=== PATIENT | female | born 1980 | race Caucasian/White ===

== ENCOUNTER 2016-12-09 13:19 | Emergency (ER) | payer MEDICAID ==
[~2016-12-09] VITALS: Ht 154.9 cm; Wt 100.0 kg
[~2016-12-09 13:19] MED LIST: ALPR0.25 PO; CORT1SOL LEFT EAR; CYAN1000P IM; CYMB60CA PO; DOXE75CA2 PO; ERGO1CAP10 PO; HYDR-3534 PO; MAGICADU2 SWISH-SWAL; METH750T PO; NAPR500 PO; NYST1000 SWISH-SWAL; PENI500T PO; PREG300 PO; RIZA5TAB PO; SUMA85TA PO; TOPI1TAB97 PO; ZANT150T2 PO; ZETI10TA5 PO; ZOFR4TAB3 SL
[2016-12-09 13:21] VITALS: BP 143/89; PULSE 96; RESP 17; TEMP 98.1; O2SAT 98
[2016-12-09] MEDS ORDERED: CYMB30CA PO (13:47)
[2016-12-09] MEDS ORDERED: DOXE100C4 PO (13:47)
[2016-12-09] MEDS ORDERED: PERI0.126 SWISH-SPIT (14:14)
[2016-12-09] MEDS ORDERED: PENI500T PO (14:14)
[2016-12-09] MEDS ORDERED: IBUP800T23 PO (14:14)
--- NOTE | 2016-12-09 14:15 | PD ---
HPI Chief Complaint: Oral / Dental Pain or Problem Time Seen by Provider: 14:10 Travel History International Travel<30 days: No Contact w/Intl Traveler<30days: No Traveled to known affect area: No History of Present Illness HPI 36-year-old female presents to the emergency department for evaluation of dental pain and possible dental abscess that started a few days ago. Patient has history of chronic dental problems. She states she has an appointment with an oral surgeon coming to have her teeth removed. She tried to get into her primary care physician for this issue, but was unable to get an appointment until Tuesday. Patient denies any fevers or chills. Patient states that the pain radiates to her left ear. She states that she typically gets penicillin which will help her symptoms. Patient is also requesting a prescription for ibuprofen. Patient denies any other complaints at this time. PFSH Past Medical History Asthma: Yes ( A CHILD) Anxiety: Yes Depression: Yes Heart Rhythm Problems: Yes Diminished Hearing: No Diverticulitis: Yes Fibromyalgia: Yes Gastrointestinal Disorders: Yes (BLEEDING ULCERS; MULTIPLE ADHESIONS; IBS) GERD: Yes Genitourinary: Yes (KIDNEY STONES) Insomnia: Yes Musculoskeletal: Yes (HERNIATED DISCS) Respiratory: Yes (ASTHMA) Migraines: Yes Pancreatitis: Yes ?: Not LMP: 11/17/16 : 3 Para: 3 Tubal Ligation: Yes (X 2) Past Surgical History Abdominal Surgery: Yes (ABDOMINOPLASTY WITH LIPOSUCTION) Section: Yes (X 3) Cholecystectomy: Yes Social History Alcohol Use: No Tobacco Use: No Substance Use: No Allergies-Medications (Allergen,Severity, Reaction): Coded Allergies: Penicillin (Verified Allergy, Intermediate, YEAST INFECT, 12/09/16) Reported Meds & Prescriptions Reported Meds & Active Scripts Active Cortisporin HC Otic Drops (Mehbiwme-Gfggbuvnl-NN Otic Drops) 3.5-10,000-1 Mg- Units-% Soln 4 Drop LEFT EAR QID Reported Cymbalta DR (Duloxetine HCl) 30 Mg Capdr 40 Mg PO DAILY Doxepin (Doxepin HCl) 100 Mg Cap 100 Mg PO HS Rizatriptan (Rizatriptan Benzoate) 5 Mg Tab 5 Mg PO ONCE May repeat in 2hr intervals, not to exceed 30mg in 24hrs Zofran Odt (Ondansetron Odt) 4 Mg Tab 4 Mg SL Q6HR PRN Topiramate 25 Mg Tab 50 Mg PO BID Zetia (Ezetimibe) 10 Mg Tab 10 Mg PO DAILY Zantac (Ranitidine HCl) 150 Mg Tab 150 Mg PO BID Cyanocobalamin Inj (Cyanocobalamin) 1,000 Mcg/Ml Inj 1,000 Mcg IM Q30D Vitamin D (Ergocalciferol) 50,000 Unit Cap 50,000 Units PO Q7D MONDAYS Lyrica (Pregabalin) 300 Mg Cap 300 Mg PO BID Methocarbamol 750 Mg Tab 750 Mg PO Q12HR Lortab (Hydrocodone-Acetaminophen) 7.5-325 Mg Tab 1 Tab PO Q12HR PRN Review of Systems Except as stated in HPI: all other systems reviewed are Neg Physical Exam Narrative GENERAL: Well-developed well-nourished female patient, ambulatory. Afebrile. SKIN: Warm and dry. HEAD: Normocephalic. Atraumatic. ENT: Mucosa pink and moist. No erythema or exudates. No uvular edema. No uvular , palatal, or tonsillar deviation. Airway patent. Nasal turbinates appear normal without nasal blood, purulent drainage or septal hematoma. Bilateral tympanic membranes are clear without erythema or perforation. He has poor dentalgia. She has tenderness above tooth #14 and below tooth #19. No facial swelling. EYES: No scleral icterus. No injection or drainage. NECK: Supple, trachea midline. No JVD or lymphadenopathy. CARDIOVASCULAR: Regular rate and rhythm without murmurs, gallops, or rubs. RESPIRATORY: Breath sounds equal bilaterally. No accessory muscle use. Lungs sounds are clear to auscultation. MUSCULOSKELETAL: No cyanosis, or edema. Data Data Last Documented VS Vital Signs Date Time Temp Pulse Resp B/P Pulse Ox O2 Delivery O2 Flow Rate FiO2 12/09/16 13:21 98.1 96 17 143/89 98 MDM Medical Decision Making Medical Screen Exam Complete: Yes Emergency Medical Condition: Yes Medical Record Reviewed: Yes Differential Diagnosis dental abscess versus dental caries versus gingivitis Narrative Course 36-year-old female presents to the emergency department for evaluation dental pain, possible dental abscess. Patient will be discharged with a prescription for pen VK, Peridex oral solution, ibuprofen for pain. She is agreeable to this plan. She is to keep her upcoming appointments for her primary care physician oral surgeon. She verbalizes agreement and understanding. The patient was discharged in stable condition with instructions, including return instructions and follow up instructions. Diagnosis Primary Impression: Toothache Referrals: Primary Care Physician Patient Instructions: General Instructions, Toothache (ED) Additional Instructions: Take antibiotic as directed until gone. Use Peridex oral solution as directed. Take ibuprofen as directed as needed with food for pain. Follow-up with your primary care physician and oral surgeon as scheduled. Return to the emergency department for any acute worsening of symptoms. Med/Other Pt SpecificInfo: Prescription(s) given Scripts Chlorhexidine Gluconate (Mouth) Liq (Peridex Liq)0.12% Soln15 Ml SWISH-SPIT BID #473 ML Ref 0 Prov:Rebekah Jameson 12/09/16 Ibuprofen 800 Mg [id number] Mg PO TID PRN (PAIN SCALE 1 TO 10) #21 TAB Ref 0 Prov:Rebekah Jameson 12/09/16 Penicillin V Potassium 500 Mg [id number] Mg PO Q6H 10 Days Ref 0 Prov:Rebekah Jameson 12/09/16 Disposition: 01 DISCHARGE HOME Condition: Stable Rebekah Jameson Dec 09, 2016 14:15
== END 2016-12-09 15:13 | disposition home or self-care (01) ==
LOC: NEPB 13:19
DX: K08.89 Other specified disorders of teeth and supporting structures (principal)
CPT/HCPCS: 99282

== ENCOUNTER 2018-01-13 17:39 | Emergency (ER) | payer MEDICAID ==
[~2018-01-13 17:39] MED LIST changes: -ALPR0.25 PO; +CYMB30CA PO; -CYMB60CA PO; +DOXE100C4 PO; -DOXE75CA2 PO; +EZET10 PO; +IBUP1TAB7 PO; -MAGICADU2 SWISH-SWAL; -NAPR500 PO; -NYST1000 SWISH-SWAL; +PERI0.126 SWISH-SPIT; -SUMA85TA PO; -TOPI1TAB97 PO; +TOPI25TA7 PO; -ZETI10TA5 PO
[2018-01-13 17:42] VITALS: BP 139/93; PULSE 98; RESP 18; TEMP 98.2; O2SAT 98
[2018-01-13 20:39] VITALS: BP 124/87; PULSE 82; RESP 18; O2SAT 99
[2018-01-13 21:14] LABS: AUTOMATED NEUTROPHIL # 11.6 TH/MM3 (1.8-7.7); BASOPHIL # 0.1 TH/MM3 (0-0.2); BASOPHIL % 0.8 % (0.0-2.0); EOSINOPHIL # 0.1 TH/MM3 (0-0.4); EOSINOPHIL % 0.7 % (0.0-4.0); HEMATOCRIT 41.7 % (35.0-46.0); HEMOGLOBIN 14.1 GM/DL (11.6-15.3); LYMPH % 26.9 % (9.0-44.0); LYMPHOCYTE # 4.6 TH/MM3 (1.0-4.8); MEAN CELL VOLUME 87.2 FL (80.0-100.0); MEAN CORPUSCULAR HEMOGLOBIN 29.6 PG (27.0-34.0); MEAN CORPUSCULAR HGB CONC 33.9 % (32.0-36.0); MEAN PLATELET VOLUME 8.1 FL (7.0-11.0); MONO % 3.6 % (0.0-8.0); MONOCYTE # 0.6 TH/MM3 (0-0.9); PLATELET COUNT 364 TH/MM3 (150-450); RED BLOOD COUNT 4.78 MIL/MM3 (4.00-5.30); RED CELL DISTRIBUTION WIDTH 15.4 % (11.6-17.2); WHITE BLOOD COUNT 17.1 TH/MM3 (4.0-11.0)
--- NOTE | 2018-01-13 21:32 | RADRPT ---
EXAM DATE/TIME: 01/13/2018 20:52 [facility] COMPARISON: No previous studies available for comparison. INDICATIONS : Chest pain, shortness of breath, cough. MEDICAL HISTORY : Asthma. SURGICAL HISTORY : Cholecystectomy. ENCOUNTER: Initial ACUITY: 2 days PAIN SCORE: 3/10 LOCATION: Bilateral chest FINDINGS: A single view of the chest demonstrates the lungs to be symmetrically aerated without evidence of mas s, infiltrate or effusion. The cardiomediastinal contours are unremarkable. Osseous structures are intact. CONCLUSION: No acute disease. Osvaldo Madrid MD on January 13, 2018 at 21:29 Board Certified Radiologist. This report was verified electronically.
[2018-01-13 21:40] LABS: ALBUMIN 3.7 GM/DL (3.4-5.0); ALKALINE PHOSPHATASE 169 U/L (45-117); ALT (GPT) 150 U/L (10-53); AST (GOT) 201 U/L (15-37); BICARBONATE 26.4 MEQ/L (21.0-32.0); BLOOD UREA NITROGEN 22 MG/DL (7-18); CHLORIDE 103 MEQ/L (98-107); CREATININE 0.97 MG/DL (0.50-1.00); GLOMERULAR FILTRATION RATE 64 ML/MIN (>89); GLUCOSE,RANDOM 93 MG/DL (74-106); SODIUM (NA) 135 MEQ/L (136-145); TOTAL BILIRUBIN ADULT 0.8 MG/DL (0.2-1.0); TOTAL PROTEIN 8.7 GM/DL (6.4-8.2); TROPONIN I LESS THAN 0.02 NG/ML (0.02-0.05)
[2018-01-13] MEDS ORDERED: KETOROLAC TROMETHAMINE 30 MG/ML (IVP) VIAL IV PUSH ONE (21:45)
[2018-01-13] MEDS ORDERED: PANTOPRAZOLE SODIUM 40 MG VIAL IV PUSH ONE (21:45)
[2018-01-13 23:13] LABS: BACTERIA, URINE RARE /hpf; BILIRUBIN, URINE NEG (NEG); BLOOD, URINE SMALL (NEG); GLUCOSE,URINE NEG (NEG); HYALINE CAST, URINE 2 /lpf (RARE); KETONE, URINE NEG (NEG); MUCUS URINE MOD /lpf (OCC); NITRITE,URINE NEG (NEG); SQUAMOUS EPITHELIAL CELL URINE 6 /hpf (0-5); URINE COLOR YELLOW (YELLW/STRAW); URINE LEUKOCYTE ESTERASE NEG (NEG)
[2018-01-14] MEDS ORDERED: LIDOCAINE VISCOUS 2% SOLN 15 ML UDC SWISH-SWAL ONE
[2018-01-14] MEDS ORDERED: ALUMINUM/MAGNESIUM/SIMETH 30 ML CUP PO ONE
[2018-01-14 00:30] VITALS: BP 127/77; PULSE 77; RESP 18; O2SAT 99
[2018-01-14] MEDS ORDERED: FAMO1TAB37 PO (00:59)
[2018-01-14] MEDS ORDERED: MAGICPED SWISH-SWAL (00:59)
--- NOTE | 2018-01-14 00:59 | PD ---
HPI Chief Complaint: Chest Pain Time Seen by Provider: 20:36 Travel History International Travel<30 days: No Contact w/Intl Traveler<30days: No Traveled to known affect area: No History of Present Illness HPI Patient is moderately obese 37 yr old female with has epigastric pain and unrelated lower back painand generalized aches flu like complaints , she has multiple varied complaints . Pt has history of fibromyalgia on lyrica and antidepressant, Pt had GB out PFSH Past Medical History Asthma: Yes ( A CHILD) Anxiety: Yes Depression: Yes Heart Rhythm Problems: Yes Diminished Hearing: No Diverticulitis: Yes Fibromyalgia: Yes Gastrointestinal Disorders: Yes (BLEEDING ULCERS; MULTIPLE ADHESIONS; IBS) GERD: Yes Genitourinary: Yes (KIDNEY STONES) Insomnia: Yes Musculoskeletal: Yes (HERNIATED DISCS) Respiratory: Yes (ASTHMA) Immunizations Current: Yes Migraines: Yes Pancreatitis: Yes ?: Not : 3 Para: 3 Tubal Ligation: Yes (X 2) Past Surgical History Abdominal Surgery: Yes (ABDOMINOPLASTY WITH LIPOSUCTION) Section: Yes (X 3) Cholecystectomy: Yes Social History Alcohol Use: No Tobacco Use: No Substance Use: No Allergies-Medications (Allergen,Severity, Reaction): Coded Allergies: No Known Allergies (Unverified Adverse Reaction, Unknown, 01/13/18) Reported Meds & Prescriptions Reported Meds & Active Scripts Active Pepcid (Famotidine) 20 Mg Tab 20 Mg PO BID Magic Mouthwash Pediatric/Adult Liq (Lidocaine/Diphenhydr/Alum/Mg/Simeth) 60 Ml Susp 5 Ml SWISH-SWAL ACHS Each 5mL contains: Diphenydramine 4.5mg, Viscous Lidocaine 2% 10mg, Maalox Advanced Regular Strength 2.7ml Peridex Liq (Chlorhexidine Gluconate (Mouth) Liq) 0.12% Soln 15 Ml SWISH-SPIT BID Ibuprofen 800 Mg Tab 800 Mg PO TID PRN Penicillin V Potassium 500 Mg Tab 500 Mg PO Q6H 10 Days Cortisporin HC Otic Drops (Tajfiacx-Pxlbxexpo-DS Otic Drops) 3.5-10,000-1 Mg- Units-% Soln 4 Drop LEFT EAR QID Reported Cymbalta DR (Duloxetine HCl) 30 Mg Capdr 40 Mg PO DAILY Doxepin (Doxepin HCl) 100 Mg Cap 100 Mg PO HS Rizatriptan (Rizatriptan Benzoate) 5 Mg Tab 5 Mg PO ONCE May repeat in 2hr intervals, not to exceed 30mg in 24hrs Zofran Odt (Ondansetron Odt) 4 Mg Tab 4 Mg SL Q6HR PRN Topiramate 25 Mg Tab 50 Mg PO BID Zetia (Ezetimibe) 10 Mg Tab 10 Mg PO DAILY Zantac (Ranitidine HCl) 150 Mg Tab 150 Mg PO BID Cyanocobalamin Inj (Cyanocobalamin) 1,000 Mcg/Ml Inj 1,000 Mcg IM Q30D Vitamin D (Ergocalciferol) 50,000 Unit Cap 50,000 Units PO Q7D MONDAYS Lyrica (Pregabalin) 300 Mg Cap 300 Mg PO BID Methocarbamol 750 Mg Tab 750 Mg PO Q12HR Lortab (Hydrocodone-Acetaminophen) 7.5-325 Mg Tab 1 Tab PO Q12HR PRN Physical Exam Narrative GENERAL: obese pt in mild distress appearance complaining of back pain and abdo pain and headache and general body aches SKIN: Warm and dry. HEAD: Atraumatic. Normocephalic. EYES: Pupils equal and round. No scleral icterus. No injection or drainage. ENT: No nasal bleeding or discharge. Mucous membranes pink and moist. NECK: Trachea midline. No JVD. CARDIOVASCULAR: Regular rate and rhythm. RESPIRATORY: No accessory muscle use. Clear to auscultation. Breath sounds equal bilaterally. GASTROINTESTINAL: Abdomen soft,obese epigastric tenderness, nondistended. Hepatic and splenic margins not palpable. MUSCULOSKELETAL: Extremities LOWER BACK lumbral paraspinal tenderness . NEUROLOGICAL: Awake and alert. No obvious cranial nerve deficits. Motor grossly within normal limits. Five out of 5 muscle strength in the arms and legs. Normal speech. PSYCHIATRIC: Appropriate mood and affect; insight and judgment normal. Data Data Last Documented VS Vital Signs Date Time Temp Pulse Resp B/P (MAP) Pulse Ox O2 Delivery O2 Flow Rate FiO2 01/14/18 01:08 01/14/18 00:30 77 18 99 Room Air 01/13/18 17:42 98.2 Orders Orders Electrocardiogram (01/13/18 ) Complete Blood Count With Diff (01/13/18 20:36) Comprehensive Metabolic Panel (01/13/18 20:36) Ckmb (Isoenzyme) Profile (01/13/18 20:36) Troponin I (01/13/18 20:36) Lipase (01/13/18 20:36) Chest, Single Ap (01/13/18 20:36) Pantoprazole Inj (Protonix Inj) (01/13/18 21:45) Ketorolac Inj (Toradol Inj) (01/13/18 21:45) CKMB (01/13/18 20:40) CKMB% (01/13/18 20:40) Urinalysis - C+S If Indicated (01/13/18 22:18) Al-Mag Hy-Si 40-40-4 Mg/Ml Liq (Mag-Al P (01/14/18 00:00) Lidocaine 2% Viscous (Xylocaine 2% Visco (01/14/18 00:00) Ed Discharge Order (01/14/18 00:47) Labs Laboratory Tests Test 01/13/18 20:40 01/13/18 22:20 White Blood Count 17.1 TH/MM3 Red Blood Count 4.78 MIL/MM3 Hemoglobin 14.1 GM/DL Hematocrit 41.7 % Mean Corpuscular Volume 87.2 FL Mean Corpuscular Hemoglobin 29.6 PG Mean Corpuscular Hemoglobin Concent 33.9 % Red Cell Distribution Width 15.4 % Platelet Count 364 TH/MM3 Mean Platelet Volume 8.1 FL Neutrophils (%) (Auto) 68.0 % Lymphocytes (%) (Auto) 26.9 % Monocytes (%) (Auto) 3.6 % Eosinophils (%) (Auto) 0.7 % Basophils (%) (Auto) 0.8 % Neutrophils # (Auto) 11.6 TH/MM3 Lymphocytes # (Auto) 4.6 TH/MM3 Monocytes # (Auto) 0.6 TH/MM3 Eosinophils # (Auto) 0.1 TH/MM3 Basophils # (Auto) 0.1 TH/MM3 CBC Comment DIFF FINAL Differential Comment Blood Urea Nitrogen 22 MG/DL Creatinine 0.97 MG/DL Random Glucose 93 MG/DL Total Protein 8.7 GM/DL Albumin 3.7 GM/DL Calcium Level 9.0 MG/DL Alkaline Phosphatase 169 U/L Aspartate Amino Transf (AST/SGOT) 201 U/L Alanine Aminotransferase (ALT/SGPT) 150 U/L Total Bilirubin 0.8 MG/DL Sodium Level 135 MEQ/L Potassium Level 5.5 MEQ/L Chloride Level 103 MEQ/L Carbon Dioxide Level 26.4 MEQ/L Anion Gap 6 MEQ/L Estimat Glomerular Filtration Rate 64 ML/MIN Total Creatine Kinase 127 U/L Creatine Kinase MB 1.6 NG/ML Troponin I LESS THAN 0.02 NG/ML Lipase 124 U/L Urine Color YELLOW Urine Turbidity CLEAR Urine pH 6.0 Urine Specific [place] 1.024 Urine Protein TRACE mg/dL Urine Glucose (UA) NEG mg/dL Urine Ketones NEG mg/dL Urine Occult Blood SMALL Urine Nitrite NEG Urine Bilirubin NEG Urine Urobilinogen LESS THAN 2.0 MG/DL Urine Leukocyte Esterase NEG Urine RBC 5 /hpf Urine WBC 1 /hpf Urine Squamous Epithelial Cells 6 /hpf Urine Bacteria RARE /hpf Urine Hyaline Casts 2 /lpf Urine Mucus MOD /lpf Microscopic Urinalysis Comment CULT NOT INDICATED MDM Medical Decision Making Medical Screen Exam Complete: Yes Emergency Medical Condition: Yes Differential Diagnosis DDx GERD vs chronic myalgias , vs GB disease vs pancreatitis vs other , Chronic abdo pain , acute gastritis other . Narrative Course Pt has relief from GI cocktail and protonix IV and toradol IV and I feel further emergent work up not indicated as her symptoms are relieved with antiacids. her epigastric pain relieved. My assumptions is that if it were pancreas disease then antiacids alone would not have relieved her pain Pt had her gallbladder out years ago , Pt is safe for Discharge with close outpt follow up Her LFTs are elevated AST dbl ALT possible etoh or medication related, pattern--> pt gallbladder removed over 5 years ago Diagnosis Primary Impression: GERD (gastroesophageal reflux disease) Qualified Codes: K21.9 - Gastro-esophageal reflux disease without esophagitis Patient Instructions: Gastritis (ED), General Instructions Scripts Famotidine (Pepcid) 20 Mg Tab 20 MG PO BID, #15 TAB 0 Refills Prov: Elian Johnson MD 01/14/18 Hcimzwuqepxxfyt-Bqwpufgic-Ans-Alum-Simeth Liq (Magic Mouthwash Pediatric/Adult Liq) 60 Ml Susp 5 ML SWISH-SWAL ACHS for Mouth sores, #60 ML 0 Refills Each 5mL contains: Diphenydramine 4.5mg, Viscous Lidocaine 2% 10mg, Maalox Advanced Regular Strength 2.7ml Prov: Elian Johnson MD 4/14/18 Disposition: 01 DISCHARGE HOME Condition: Good Alex,Elian MD Jan 14, 2018 00:59
--- NOTE | 2018-01-14 16:32 | EKG ---
Date Performed: 01/13/2018 Time Performed: 17:57:22 PTAGE: 37 years EKG: Sinus rhythm POSSIBLE LEFT ATRIAL ENLARGEMENT POSSIBLE RIGHT VENTRICULAR CONDUCTION DELAY BORDERLINE ECG NO PREVIOUS TRACING DOCTOR: Elva Maurice Interpretating Date/Time 01/14/2018 16:30:18
== END 2018-01-14 01:09 | disposition home or self-care (01) ==
LOC: NEPE 17:39
DX: K21.9 Gastro-esophageal reflux disease without esophagitis (principal); R94.31 Abnormal electrocardiogram [ECG] [EKG]; J45.909 Unspecified asthma, uncomplicated; F41.9 Anxiety disorder, unspecified; F32.9 Major depressive disorder, single episode, unspecified; M79.7 Fibromyalgia; K58.9 Irritable bowel syndrome, unspecified; E66.9 Obesity, unspecified
CPT/HCPCS: 71045; 80053; 81001; 82550; 82552; 83690; 84484; 85025; 93005; 96374; 96375; 99285; C9113; J1885

== ENCOUNTER 2018-01-21 14:57 | Emergency (ER) | payer MEDICAID ==
[~2018-01-21] VITALS: Ht 154.9 cm; Wt 104.0 kg
[~2018-01-21 14:57] MED LIST changes: +FAMO1TAB37 PO; +MAGICPED SWISH-SWAL
[2018-01-21] MEDS ORDERED: IOHEXOL 350 MG/ML 10 ML VIAL (for RAD DIAG) IVCONTRAST ONE (14:58)
[2018-01-21 15:03] VITALS: BP 129/85; PULSE 69; RESP 18; TEMP 97.9; O2SAT 94
[2018-01-21 16:19] VITALS: BP 116/72; PULSE 89; RESP 15; TEMP 98.2; O2SAT 100
[2018-01-21] MEDS ORDERED: SODIUM CHLORIDE 0.9% FLUSH 10 ML FLUSH IV FLUSH PRN (16:30)
[2018-01-21] MEDS ORDERED: SODIUM CHLOR 0.9% 1000 ML INJ 1,000 ML IV SCH (16:30)
[2018-01-21] MEDS ORDERED: MORPHINE SULFATE 4 MG/ML INJ IV PUSH ONE (16:30)
[2018-01-21] MEDS ORDERED: ONDANSETRON HCL 4 MG/2 ML VIAL IVP ONE (16:30)
--- NOTE | 2018-01-21 16:35 | PD ---
HPI Chief Complaint: Abdominal Pain Time Seen by Provider: 16:21 Travel History International Travel<30 days: No Contact w/Intl Traveler<30days: No Traveled to known affect area: No History of Present Illness HPI This is a 37-year-old female with history of peptic ulcer disease, IBS, GERD, fibromyalgia, cholecystectomy, diverticulosis, presents for evaluation of abdominal pain. Symptoms started 1.5 weeks ago. She describes pain as sharp, generalized, with associated bloating sensation. She reports associated 3-4 episodes of watery stool on a daily basis over the past 3 days as well as nausea. She is concerned that she may have diverticulitis. She was seen here for evaluation of this pain on January 13 and was felt to be secondary to her GERD. Her symptoms have persisted since then and she presents here for further evaluation. No other complaints at this time. PFSH Past Medical History Asthma: Yes ( A CHILD) Anxiety: Yes Depression: Yes Heart Rhythm Problems: Yes Diminished Hearing: No Diverticulitis: Yes Fibromyalgia: Yes Gastrointestinal Disorders: Yes (BLEEDING ULCERS; MULTIPLE ADHESIONS; IBS) GERD: Yes Genitourinary: Yes (KIDNEY STONES) Insomnia: Yes Musculoskeletal: Yes (HERNIATED DISCS) Respiratory: Yes (ASTHMA) Immunizations Current: Yes Migraines: Yes Pancreatitis: Yes Influenza Vaccination: No ?: Not LMP: 12/17/2017 : 3 Para: 3 Tubal Ligation: Yes (X 2) Past Surgical History Abdominal Surgery: Yes (ABDOMINOPLASTY WITH LIPOSUCTION) Section: Yes (X 3) Cholecystectomy: Yes Social History Alcohol Use: No Tobacco Use: No Substance Use: No Allergies-Medications (Allergen,Severity, Reaction): Coded Allergies: No Known Allergies (Unverified Adverse Reaction, Unknown, 01/21/18) Reported Meds & Prescriptions Reported Meds & Active Scripts Active Reported Zofran Odt (Ondansetron Odt) 4 Mg Tab 4 Mg SL Q6HR PRN Topiramate 25 Mg Tab 50 Mg PO BID Zantac (Ranitidine HCl) 150 Mg Tab 150 Mg PO BID Methocarbamol 750 Mg Tab 750 Mg PO Q12HR Review of Systems Except as stated in HPI: all other systems reviewed are Neg Physical Exam Narrative GENERAL: Well-developed well-nourished female no acute distress SKIN: Warm and dry. HEAD: Atraumatic. Normocephalic. EYES: Pupils equal and round. No scleral icterus. No injection or drainage. ENT: No nasal bleeding or discharge. Mucous membranes pink and moist. NECK: Trachea midline. No JVD. CARDIOVASCULAR: Regular rate and rhythm. No murmur appreciated. RESPIRATORY: No accessory muscle use. Clear to auscultation. Breath sounds equal bilaterally. GASTROINTESTINAL: Abdomen soft, mild tenderness to palpation the epigastrium and left lower quadrant without guarding. No CVA tenderness. MUSCULOSKELETAL: No obvious deformities. No clubbing. No cyanosis. No edema. NEUROLOGICAL: Awake and alert. No obvious cranial nerve deficits. Motor grossly within normal limits. Normal speech. PSYCHIATRIC: Appropriate mood and affect; insight and judgment normal. Data Data Last Documented VS Vital Signs Date Time Temp Pulse Resp B/P (MAP) Pulse Ox O2 Delivery O2 Flow Rate FiO2 01/21/18 18:53 98.2 70 14 122/69 (86) 99 Room Air Orders Orders Complete Blood Count With Diff (01/21/18 16:30) Comprehensive Metabolic Panel (01/21/18 16:30) Lipase (01/21/18 16:30) Urinalysis - C+S If Indicated (01/21/18 16:30) Ct Abd/Pel W Iv Contrast(Rout) (01/21/18 16:30) Iv Access Insert/Monitor (01/21/18 16:30) Ecg Monitoring (01/21/18 16:30) Oximetry (01/21/18 16:30) Morphine Inj (Morphine Inj) (01/21/18 16:30) Ondansetron Inj (Zofran Inj) (01/21/18 16:30) Sodium Chlor 0.9% 1000 Ml Inj (Ns 1000 M (01/21/18 16:30) Sodium Chloride 0.9% Flush (Ns Flush) (01/21/18 16:30) Ed Urine Pregnancytest Poc (01/21/18 16:30) Pantoprazole Inj (Protonix Inj) (01/21/18 16:45) Al-Mag Hy-Si 40-40-4 Mg/Ml Liq (Mag-Al P (01/21/18 16:45) Lidocaine 2% Viscous (Xylocaine 2% Visco (01/21/18 16:45) Iohexol 350 Inj (Omnipaque 350 Inj) (01/21/18 14:58) Ed Discharge Order (01/21/18 19:00) Labs Laboratory Tests Test 01/21/18 16:34 White Blood Count 14.6 TH/MM3 Red Blood Count 4.35 MIL/MM3 Hemoglobin 12.8 GM/DL Hematocrit 38.2 % Mean Corpuscular Volume 87.8 FL Mean Corpuscular Hemoglobin 29.3 PG Mean Corpuscular Hemoglobin Concent 33.4 % Red Cell Distribution Width 15.0 % Platelet Count 352 TH/MM3 Mean Platelet Volume 7.6 FL Neutrophils (%) (Auto) 67.5 % Lymphocytes (%) (Auto) 25.4 % Monocytes (%) (Auto) 3.9 % Eosinophils (%) (Auto) 2.3 % Basophils (%) (Auto) 0.9 % Neutrophils # (Auto) 9.9 TH/MM3 Lymphocytes # (Auto) 3.7 TH/MM3 Monocytes # (Auto) 0.6 TH/MM3 Eosinophils # (Auto) 0.3 TH/MM3 Basophils # (Auto) 0.1 TH/MM3 CBC Comment DIFF FINAL Differential Comment Urine Color YELLOW Urine Turbidity HAZY Urine pH 6.0 Urine Specific [place] 1.033 Urine Protein 30 mg/dL Urine Glucose (UA) NEG mg/dL Urine Ketones NEG mg/dL Urine Occult Blood NEG Urine Nitrite NEG Urine Bilirubin NEG Urine Urobilinogen LESS THAN 2.0 MG/DL Urine Leukocyte Esterase SMALL Urine RBC 2 /hpf Urine WBC 2 /hpf Urine Squamous Epithelial Cells 10 /hpf Urine Mucus FEW /lpf Microscopic Urinalysis Comment CULT NOT INDICATED Blood Urea Nitrogen 21 MG/DL Creatinine 1.05 MG/DL Random Glucose 87 MG/DL Total Protein 7.6 GM/DL Albumin 3.4 GM/DL Calcium Level 8.6 MG/DL Alkaline Phosphatase 103 U/L Aspartate Amino Transf (AST/SGOT) 18 U/L Alanine Aminotransferase (ALT/SGPT) 28 U/L Total Bilirubin 0.2 MG/DL Sodium Level 138 MEQ/L Potassium Level 4.4 MEQ/L Chloride Level 105 MEQ/L Carbon Dioxide Level 24.3 MEQ/L Anion Gap 9 MEQ/L Estimat Glomerular Filtration Rate 58 ML/MIN Lipase 129 U/L [facility] Medical Decision Making Medical Screen Exam Complete: Yes Emergency Medical Condition: Yes Medical Record Reviewed: Yes Differential Diagnosis Peptic ulcer disease, pancreatitis, gastroenteritis, gastritis, biliary colic, diverticulitis Narrative Course Lab work, urinalysis, CT abdomen and pelvis ordered. The patient was given IV fluids and analgesics and antiemetics. CBC reveals WBC count of 14.6 with no left shift. CMP reveals a GFR of 58 otherwise unremarkable. Urinalysis reveals small leukocytes otherwise unremarkable. CT abdomen and pelvis reveals CONCLUSION: 1. No acute findings. Colonic diverticula noted without evidence for diverticulitis. Previous cholecystectomy. Mild fatty liver. Upon reexamination the patient feels significantly improved. At this point time the plan will be to discharge the patient, discussed the recommendation of following up with a staff development coordinator rn for more of a outpatient workup of her abdominal pain. She is agreeable with this plan. Diagnosis Primary Impression: Abdominal pain Additional Instructions: Advance diet as tolerated, follow-up with primary care physician and gastroenterology. Return for any emergent medical conditions. Med/Other Pt SpecificInfo: No Change to Meds Disposition: 01 DISCHARGE HOME Condition: Stable Willie Laguna Jan 21, 2018 16:34
[2018-01-21] MEDS ORDERED: PANTOPRAZOLE SODIUM 40 MG VIAL IVP ONE (16:45)
[2018-01-21] MEDS ORDERED: LIDOCAINE VISCOUS 2% SOLN 15 ML UDC PO ONE (16:45)
[2018-01-21] MEDS ORDERED: ALUMINUM/MAGNESIUM/SIMETH 30 ML CUP PO ONE (16:45)
[2018-01-21 16:53] VITALS: RESP 17; O2SAT 98
[2018-01-21 16:56] LABS: AUTOMATED NEUTROPHIL # 9.9 TH/MM3 (1.8-7.7); BASOPHIL # 0.1 TH/MM3 (0-0.2); BASOPHIL % 0.9 % (0.0-2.0); EOSINOPHIL # 0.3 TH/MM3 (0-0.4); EOSINOPHIL % 2.3 % (0.0-4.0); HEMATOCRIT 38.2 % (35.0-46.0); HEMOGLOBIN 12.8 GM/DL (11.6-15.3); LYMPH % 25.4 % (9.0-44.0); LYMPHOCYTE # 3.7 TH/MM3 (1.0-4.8); MEAN CELL VOLUME 87.8 FL (80.0-100.0); MEAN CORPUSCULAR HEMOGLOBIN 29.3 PG (27.0-34.0); MEAN CORPUSCULAR HGB CONC 33.4 % (32.0-36.0); MEAN PLATELET VOLUME 7.6 FL (7.0-11.0); MONO % 3.9 % (0.0-8.0); MONOCYTE # 0.6 TH/MM3 (0-0.9); NEUT % 67.5 % (16.0-70.0); PLATELET COUNT 352 TH/MM3 (150-450); RED BLOOD COUNT 4.35 MIL/MM3 (4.00-5.30); WHITE BLOOD COUNT 14.6 TH/MM3 (4.0-11.0)
[2018-01-21 17:01] LABS: BILIRUBIN, URINE NEG (NEG); BLOOD, URINE NEG (NEG); GLUCOSE,URINE NEG (NEG); KETONE, URINE NEG (NEG); MUCUS URINE FEW /lpf (OCC); NITRITE,URINE NEG (NEG); SQUAMOUS EPITHELIAL CELL URINE 10 /hpf (0-5); URINE COLOR YELLOW (YELLW/STRAW); URINE LEUKOCYTE ESTERASE SMALL (NEG)
--- NOTE | 2018-01-21 17:21 | PD ---
Physical Exam Narrative I, Dr. Dacosta, have reviewed the advance practice practitioner's documentation and am in agreement, met with the patient face to face, made the diagnosis, and the medical decision making was done by me. *My assessment and Findings: IBS vs. colitis vs. gastritis vs. nephrolithiasis 37yo F with IBS here with bilateral mid abdominal pain for 1.5 weeks. + Bloating. +Nausea. Denies any fever, chest pain, sob. Urine negative. Labs reviewed, leukocytosis at 14.6. H/H normal. CMP unremarkable. Lipase normal. UA negative. CT a/p showed no acute findings. Pt given GI cocktail, morphine and zofran with improvement of pain and nausea. Pt is well appearing. Return precautions given. Data Data Last Documented VS Vital Signs Date Time Temp Pulse Resp B/P (MAP) Pulse Ox O2 Delivery O2 Flow Rate FiO2 01/21/18 19:25 01/21/18 18:53 98.2 70 14 99 Room Air Orders Orders Complete Blood Count With Diff (01/21/18 16:30) Comprehensive Metabolic Panel (01/21/18 16:30) Lipase (01/21/18 16:30) Urinalysis - C+S If Indicated (01/21/18 16:30) Ct Abd/Pel W Iv Contrast(Rout) (01/21/18 16:30) Iv Access Insert/Monitor (01/21/18 16:30) Ecg Monitoring (01/21/18 16:30) Oximetry (01/21/18 16:30) Morphine Inj (Morphine Inj) (01/21/18 16:30) Ondansetron Inj (Zofran Inj) (01/21/18 16:30) Sodium Chlor 0.9% 1000 Ml Inj (Ns 1000 M (01/21/18 16:30) Sodium Chloride 0.9% Flush (Ns Flush) (01/21/18 16:30) Ed Urine Pregnancytest Poc (01/21/18 16:30) Pantoprazole Inj (Protonix Inj) (01/21/18 16:45) Al-Mag Hy-Si 40-40-4 Mg/Ml Liq (Mag-Al P (01/21/18 16:45) Lidocaine 2% Viscous (Xylocaine 2% Visco (01/21/18 16:45) Iohexol 350 Inj (Omnipaque 350 Inj) (01/21/18 14:58) Ed Discharge Order (01/21/18 19:00) Electrocardiogram (01/21/18 16:16) Labs Laboratory Tests Test 01/21/18 16:34 White Blood Count 14.6 TH/MM3 Red Blood Count 4.35 MIL/MM3 Hemoglobin 12.8 GM/DL Hematocrit 38.2 % Mean Corpuscular Volume 87.8 FL Mean Corpuscular Hemoglobin 29.3 PG Mean Corpuscular Hemoglobin Concent 33.4 % Red Cell Distribution Width 15.0 % Platelet Count 352 TH/MM3 Mean Platelet Volume 7.6 FL Neutrophils (%) (Auto) 67.5 % Lymphocytes (%) (Auto) 25.4 % Monocytes (%) (Auto) 3.9 % Eosinophils (%) (Auto) 2.3 % Basophils (%) (Auto) 0.9 % Neutrophils # (Auto) 9.9 TH/MM3 Lymphocytes # (Auto) 3.7 TH/MM3 Monocytes # (Auto) 0.6 TH/MM3 Eosinophils # (Auto) 0.3 TH/MM3 Basophils # (Auto) 0.1 TH/MM3 CBC Comment DIFF FINAL Differential Comment Urine Color YELLOW Urine Turbidity HAZY Urine pH 6.0 Urine Specific [place] 1.033 Urine Protein 30 mg/dL Urine Glucose (UA) NEG mg/dL Urine Ketones NEG mg/dL Urine Occult Blood NEG Urine Nitrite NEG Urine Bilirubin NEG Urine Urobilinogen LESS THAN 2.0 MG/DL Urine Leukocyte Esterase SMALL Urine RBC 2 /hpf Urine WBC 2 /hpf Urine Squamous Epithelial Cells 10 /hpf Urine Mucus FEW /lpf Microscopic Urinalysis Comment CULT NOT INDICATED Blood Urea Nitrogen 21 MG/DL Creatinine 1.05 MG/DL Random Glucose 87 MG/DL Total Protein 7.6 GM/DL Albumin 3.4 GM/DL Calcium Level 8.6 MG/DL Alkaline Phosphatase 103 U/L Aspartate Amino Transf (AST/SGOT) 18 U/L Alanine Aminotransferase (ALT/SGPT) 28 U/L Total Bilirubin 0.2 MG/DL Sodium Level 138 MEQ/L Potassium Level 4.4 MEQ/L Chloride Level 105 MEQ/L Carbon Dioxide Level 24.3 MEQ/L Anion Gap 9 MEQ/L Estimat Glomerular Filtration Rate 58 ML/MIN Lipase 129 U/L MDM Supervised Visit with BILL: Yes Interpretation(s) EKG: NSR 71bpm. LAD. TWI III. TWI V3, V4, V5. Diagnosis Primary Impression: Abdominal pain Cecily Dacosta DO Jan 21, 2018 17:21
[2018-01-21 17:26] LABS: ALKALINE PHOSPHATASE 103 U/L (45-117); ALT (GPT) 28 U/L (10-53); TOTAL BILIRUBIN ADULT 0.2 MG/DL (0.2-1.0); TOTAL PROTEIN 7.6 GM/DL (6.4-8.2)
[2018-01-21 17:27] LABS: ALBUMIN 3.4 GM/DL (3.4-5.0); AST (GOT) 18 U/L (15-37); BICARBONATE 24.3 MEQ/L (21.0-32.0); BLOOD UREA NITROGEN 21 MG/DL (7-18); CALCIUM 8.6 MG/DL (8.5-10.1); CHLORIDE 105 MEQ/L (98-107); CREATININE 1.05 MG/DL (0.50-1.00); GLOMERULAR FILTRATION RATE 58 ML/MIN (>89); GLUCOSE,RANDOM 87 MG/DL (74-106); SODIUM (NA) 138 MEQ/L (136-145)
[2018-01-21 18:00] VITALS: BP 120/83; PULSE 76; RESP 16; TEMP 97.9; O2SAT 99
--- NOTE | 2018-01-21 18:45 | RADRPT ---
EXAM DATE/TIME: 01/21/2018 18:21 [facility] COMPARISON: CT ABDOMEN & PELVIS W CONTRAST, April 21, 2015, 1:44. INDICATIONS : Left lower quadrant pain. past week. IV CONTRAST: 95 cc Omnipaque 350 (iohexol) IV ORAL CONTRAST: No oral contrast ingested. RADIATION DOSE: 22.61 CTDIvol (mGy) ; Patient body habitus MEDICAL HISTORY : Diverticulitis. Inflammatory bowel disease. Gastroesophageal reflux disease.Renal stones SURGICAL HISTORY : Tubal ligation. Cholecystectomy. ENCOUNTER: Initial ACUITY: 1 week PAIN SCALE: 7/10 LOCATION: Left lower quadrant TECHNIQUE: Volumetric scanning of the abdomen and pelvis was performed. Using automated exposure control and ad justment of the mA and/or kV according to patient size, radiation dose was kept as low as reasonably achievable to obtain optimal diagnostic quality images. DICOM format image data is available electro nically for review and comparison. FINDINGS: Limited bases are clear except minimal dependent atelectasis. Mild fatty liver. Spleen, adrenals, pancreas unremarkable. Small nonobstructing 2.5 mm calculus lower pole right kidney. Left kidney unremarkable. Previous cholecystectomy. No free fluid no bowel obstruction. No adenopathy. CONCLUSION: 1. No acute findings. Colonic diverticula noted without evidence for diverticulitis. Previous cholecy stectomy. Mild fatty liver. Osvaldo Madrid MD on January 21, 2018 at 18:39 Board Certified Radiologist. This report was verified electronically.
[2018-01-21 18:53] VITALS: BP 122/69; PULSE 70; RESP 14; TEMP 98.2; O2SAT 99
--- NOTE | 2018-01-23 00:36 | EKG ---
Date Performed: 01/21/2018 Time Performed: 16:16:33 PTAGE: 37 years EKG: Sinus rhythm NON-SPECIFIC ST/T WAVE CHANGES INTERPRETATION BASED ON A DEFAULT AGE OF 38 YEARS PREVIOUS TRACING : 01/13/2018 17.57 Since the previous tracing, no significant change not ed DOCTOR: Wiliam Diego Interpretating Date/Time 01/23/2018 00:35:49
== END 2018-01-21 19:25 | disposition home or self-care (01) ==
LOC: NEPC 14:57
DX: R10.9 Unspecified abdominal pain (principal); K57.30 Diverticulosis of large intestine without perforation or abscess without bleeding; K76.0 Fatty (change of) liver, not elsewhere classified; K58.9 Irritable bowel syndrome, unspecified; K21.9 Gastro-esophageal reflux disease without esophagitis; M79.7 Fibromyalgia; F32.9 Major depressive disorder, single episode, unspecified; Z87.11 Personal history of peptic ulcer disease; Z79.899 Other long term (current) drug therapy
CPT/HCPCS: 74177; 80053; 81001; 83690; 84703; 85025; 93005; 96361; 96374; 96375; 99285; C9113; J2270; J2405; J7030; Q9967